=== PATIENT | male | born 1965 | race Hispanic/Latino ===

== ENCOUNTER 2022-05-13 16:55 | Emergency (ER) | payer SELFPAY ==
[2022-05-13 18:47] LABS: ALT (SGPT) 23 U/L (8-55); AST (SGOT) 60 U/L (5-34); Albumin 3.9 g/dL (3.5-5.0); Alkaline Phosphatase 153 U/L (40-110); Anion Gap 15 mmol/L (10-20); BUN (Urea Nitrogen) 7 mg/dL (8.4-25.7); Bilirubin, Total 4.2 mg/dL (0.2-1.2); Calc. Creatinine Clearance 0 mL/min (70-130); Calcium 8.8 mg/dL (7.8-10.44); Carbon Dioxide 21 mmol/L (22-29); Chloride 103 mmol/L (98-107); Estimated GFR 104; Globulin 4.4 g/dL (2.4-3.5); Glucose 131 mg/dL (70-105); Lipase 99 U/L (8-78); Potassium 3.6 mmol/L (3.5-5.1); Protein, Total 8.3 g/dL (6.0-8.3); Sodium 135 mmol/L (136-145)
[2022-05-13 18:51] LABS: #Basophils 0.1 10x3/uL (0.0-0.2); #Eosinphils 0.1 10x3/uL (0.0-0.5); #Monocytes 0.6 10x3/uL (0.0-1.1); #Neutrophils 3.5 10x3/uL (1.5-8.4); %Basophils 1.6 % (0.0-2.0); %Eosinophils 1.6 % (0.0-6.0); %Lymphocytes 28.5 % (18.0-47.0); %Monocytes 10.3 % (0.0-10.0); %Neutrophils 57.3 % (40.0-75.0); Hemoglobin 11.7 g/dL (13.5-17.5); Mean Corpuscular HGB CONC 34.7 g/dL (32.0-36.0); Mean Corpuscular Hemoglobin 34.5 pg (27.0-33.0); Mean Corpuscular Volume 99.4 fl (81.2-95.1); Mean Platelet Volume 10.4 fl (7.4-10.4); Platelet Count 86 10x3/uL (150-450); RBC Distribution Width 13.5 % (11.5-14.5); Red Blood Cell (RBC) Count 3.39 10x6/uL (4.32-5.72); White Blood Cell (WBC) Count 6.1 10x3/uL (3.5-10.5)
[2022-05-13 19:05] LABS: Large Platelets SLIGHT; Platelet Morphology Comment Appears Decreased
[2022-05-13 19:06] LABS: RBC Morphology Normal
== END 2022-05-13 20:40 | disposition home or self-care (01) ==
LOC: CSHERS 16:55
DX: R07.2 Precordial pain (principal); R07.89 Other chest pain; K74.60 Unspecified cirrhosis of liver; R06.02 Shortness of breath
CPT/HCPCS: 36415; 71045; 80053; 83690; 84484; 85025; 93005

== ENCOUNTER 2023-02-17 11:57 | Emergency (ER) | payer SELFPAY ==
[2023-02-17 13:04] LABS: #Basophils 0.1 10x3/uL (0.0-0.2); #Eosinphils 0.1 10x3/uL (0.0-0.5); #Monocytes 0.5 10x3/uL (0.0-1.1); #Neutrophils 1.8 10x3/uL (1.5-8.4); %Basophils 1.4 % (0.0-2.0); %Eosinophils 2.3 % (0.0-6.0); %Lymphocytes 29.7 % (18.0-47.0); %Monocytes 14.4 % (0.0-10.0); %Neutrophils 51.9 % (40.0-75.0); Hemoglobin 8.6 g/dL (13.5-17.5); Mean Corpuscular HGB CONC 32.7 g/dL (32.0-36.0); Mean Corpuscular Hemoglobin 28.5 pg (27.0-33.0); Mean Corpuscular Volume 87.1 fl (81.2-95.1); Platelet Count 94 10x3/uL (150-450); RBC Distribution Width 16.5 % (11.5-14.5); Red Blood Cell (RBC) Count 3.02 10x6/uL (4.32-5.72); White Blood Cell (WBC) Count 3.5 10x3/uL (3.5-10.5)
[2023-02-17 13:08] LABS: INR-International Normal Ratio 1.3; PTT 28.9 sec (22.0-33.0)
[2023-02-17 13:12] LABS: ALT (SGPT) 22 U/L (8-55); AST (SGOT) 52 U/L (5-34); Albumin 3.3 g/dL (3.5-5.0); Alkaline Phosphatase 138 U/L (40-110); Anion Gap 15 mmol/L (10-20); BUN (Urea Nitrogen) 14 mg/dL (8.4-25.7); Bilirubin, Total 3.8 mg/dL (0.2-1.2); Calc. Creatinine Clearance 0 mL/min (70-130); Calcium 8.5 mg/dL (7.8-10.44); Carbon Dioxide 18 mmol/L (22-29); Chloride 106 mmol/L (98-107); Estimated GFR 98; Globulin 3.9 g/dL (2.4-3.5); Glucose 91 mg/dL (70-105); Lipase 55 U/L (8-78); Potassium 3.5 mmol/L (3.5-5.1); Protein, Total 7.2 g/dL (6.0-8.3); Sodium 135 mmol/L (136-145)
[2023-02-17 13:21] LABS: Ovalocytes SLIGHT = 2-5 cells (100X) (0-1/hpf); Platelet Adequacy Comment Appears Decreased
== END 2023-02-17 15:07 | disposition home or self-care (01) ==
LOC: CSHERS 11:57
DX: D64.9 Anemia, unspecified (principal); K92.1 Melena
CPT/HCPCS: 71045; 80053; 83690; 85025; 85610; 85730; 86850; 86900; 86901